=== PATIENT | female | born 1955 | race Caucasian/White ===

== ENCOUNTER 2016-06-11 10:50 | Outpatient (CLI) ==
[2014-05-25 16:15] VITALS: BMI 34.3
--- NOTE | 2016-06-11 11:32 | DI ---
EXAM: RIGHT KNEE. HISTORY: Knee pain. FINDINGS: Right knee two-view. Articular cartilage width is normal. There is no fracture or joint effusion. Bone density and soft tissues are within normal limits. IMPRESSION: Within normal limits.
== END 2016-06-11 10:51 | disposition home or self-care (01) ==
LOC: RAD 10:50
PROVIDERS: ATTEND Family Medicine
DX: M25.561 Pain in right knee (principal)

== ENCOUNTER 2017-04-08 15:17 | Outpatient (CLI) ==
[2014-05-25 16:15] VITALS: BMI 34.3
== END 2017-04-08 15:18 | disposition home or self-care (01) ==
LOC: LAB 15:17
PROVIDERS: ATTEND Internal Medicine
DX: E03.9 Hypothyroidism, unspecified (principal); E11.9 Type 2 diabetes mellitus without complications; I10 Essential (primary) hypertension; E66.9 Obesity, unspecified
CPT/HCPCS: 36415; 80053; 80061; 82607; 83036; 84443; 85025

== ENCOUNTER 2017-04-11 12:45 | Outpatient (CLI) ==
[2014-05-25 16:15] VITALS: BMI 34.3
--- NOTE | 2017-04-11 14:48 | CT ---
EXAM: CT lumbar spine without contrast. HISTORY: Back pain COMPARISON: Lumbar spine x-ray 04/11/2014 TECHNIQUE: Serial axial images of the spine were obtained from the lower thoracic spine through the pelvis without contrast. These were viewed in multiple planes. FINDINGS: Vertebral bodies demonstrate no acute compression fracture. There are scattered anterior disc osteophytes and multilevel disc space narrowing. There is mild facet arthropathy. There is no lytic or blastic lesion. L1-L2: Small broad-based disc bulge and facet arthropathy with no central or neural foraminal narrowi ng. L2-L3: Posterior disc osteophyte and facet arthropathy with no central or neural foraminal narrowing. L3-L4: Broad-based disc bulge and facet arthropathy with mild bilateral neural foraminal narrowing. L4-L5: Posterior disc osteophyte and facet arthropathy with moderate to severe left and moderate righ t neural foraminal narrowing. L5-S1: Broad-based disc bulge and facet arthropathy with mild to moderate left and moderate to severe right neural foraminal narrowing. Limited views of the soft tissues are unremarkable. IMPRESSION: 1. No acute compression fracture or subluxation. 2. Multilevel degenerative disease of the lumbosacral spine with level by level evaluation as above with moderate to severe left neural foraminal narrowing at L4-L5 and moderate to severe right neural foraminal narrowing at L5-S1.
--- NOTE | 2017-04-11 14:51 | DI ---
Exam: Two x-rays of the chest. Comparison: CT chest performed 05/05/2015. Reason for exam: Back pain. FINDINGS: No pneumothorax, pleural effusion, or focal consolidation. The cardiac silhouette is not enlarged. The imaged osseous structures appear grossly unremarkable without acute fracture. Impression: No acute cardiopulmonary process.
== END 2017-04-11 12:46 | disposition home or self-care (01) ==
LOC: RAD 12:45
PROVIDERS: ATTEND Internal Medicine
DX: M54.9 Dorsalgia, unspecified (principal); I10 Essential (primary) hypertension

== ENCOUNTER 2017-04-25 07:59 | Outpatient (CLI) ==
[2014-05-25 16:15] VITALS: BMI 34.3
--- NOTE | 2017-04-25 08:56 | CT ---
Exam: CT of the abdomen pelvis with intravenous contrast. Comparison: 10/21/2014. Reason for exam: Interval bowel syndrome with abdominal pain. FINDINGS: There is mild basilar atelectasis. Partially imaged heart is not enlarged. Old granuloma s disease is seen within the mediastinum. There is atherosclerotic disease within the aorta and dist al arterial vasculature. The liver, gallbladder, adrenal glands, and pancreas appear grossly unremarkable. No intra-abdominal free air or pelvic free fluid. No focal small bowel dilatation or transition point. No hydronephrosis, hydroureter, or nephrolithiasis is seen in either kidney. Off the bladder appears grossly unremarkable. No suspicious appearing osteoblastic or osteolytic lesions. Mild to moderate degenerative disease in the lumbosacral spine. There is a small only fat containing periumbilical hernia. Impression: 1. No acute imaging findings are seen in the abdomen or pelvis. 2. Mild basilar atelectasis with degenerative disease in the lumbosacral spine
== END 2017-04-25 08:00 | disposition home or self-care (01) ==
LOC: RAD 07:59
PROVIDERS: ATTEND Internal Medicine
DX: K58.9 Irritable bowel syndrome, unspecified (principal); R10.9 Unspecified abdominal pain

== ENCOUNTER 2017-08-03 10:18 | Outpatient (CLI) ==
[2014-05-25 16:15] VITALS: BMI 34.3
== END 2017-08-03 10:19 | disposition home or self-care (01) ==
LOC: LAB 10:18
PROVIDERS: ATTEND Internal Medicine
DX: E11.9 Type 2 diabetes mellitus without complications (principal)
CPT/HCPCS: 36415; 80053; 80061; 83036; 84443; 85025

== ENCOUNTER 2018-05-01 08:36 | Outpatient (CLI) ==
[2014-05-25 16:15] VITALS: BMI 34.3
== END 2018-05-01 08:37 | disposition home or self-care (01) ==
LOC: RAD 08:36
PROVIDERS: ATTEND Internal Medicine
DX: Z12.31 Encounter for screening mammogram for malignant neoplasm of breast (principal)

== ENCOUNTER 2018-06-27 09:39 | Outpatient (CLI) ==
[2014-05-25 16:15] VITALS: BMI 34.3
== END 2018-06-27 09:40 | disposition home or self-care (01) ==
LOC: LAB 09:39
PROVIDERS: ATTEND Internal Medicine
DX: E78.5 Hyperlipidemia, unspecified (principal); E11.9 Type 2 diabetes mellitus without complications; Z79.899 Other long term (current) drug therapy
CPT/HCPCS: 36415; 80053; 80061; 83036; 84439; 84443; 85025